=== PATIENT | male | born 1985 | race Caucasian/White ===

== ENCOUNTER 2021-09-14 00:41 | Emergency (ER) | payer OTHER ==
[~2021-09-14] VITALS: Ht 177.8 cm; Wt 88.5 kg
[2021-09-14] MEDS ORDERED: KETOROLAC TROMETHAMINE 30 MG/ML VIAL IV STA (00:55)
[2021-09-14 01:14] LABS: BASOPHILS # (AUTO) 0.1 (0.0-0.1); BASOPHILS % 0.5 % (0.0-1.0); EOSINOPHILS # (AUTO) 0.7 (0.0-0.4); EOSINOPHILS % 4.6 % (0.0-6.0); HEMATOCRIT 41.8 % (38.2-49.6); LYMPHOCYTES % 20.4 % (18.0-39.1); MEAN CORPUSCULAR HEMOGLOBIN 26.5 pg (28-32); MEAN CORPUSCULAR HGB CONC 31.1 g/dL (31-35); MEAN CORPUSCULAR VOLUME 85.1 fL (81-99); MONOCYTES # (AUTO) 1.4 (0.2-0.8); MONOCYTES % 9.1 % (4.4-11.3); NEUTROPHILS # (AUTO) 9.7 (2.1-6.9); NEUTROPHILS % 65.1 % (38.7-80.0); PLATELET COUNT 245 x10e3/uL (140-360); RED BLOOD COUNT 4.91 x10e6/uL (4.3-5.7); RED CELL DISTRIBUTION WIDTH 15.2 % (11.7-14.4)
[2021-09-14 01:31] LABS: ALBUMIN 3.5 g/dL (3.5-5.0); CALCIUM 8.6 mg/dL (8.4-10.2); CREATININE, SERUM 1.03 mg/dL (0.72-1.25)
[2021-09-14] MEDS ORDERED: IOPAMIDOL 370 MG/ML 200 ML INFUS..BTL INJ ONE (02:12)
[2021-09-14] MEDS ORDERED: SODIUM CHLORIDE 0.9% 50ML 50 ML ONE (02:12)
[2021-09-14] MEDS ORDERED: Clindamycin INJ 600 MG 600 MG in SODIUM CHLORIDE 0.9% 50ML 50 ML IV STA (03:40)
[2021-09-14] MEDS ORDERED: TRAMADOL HCL 50 MG TAB PO ONE (03:45)
[2021-09-14 04:16] LABS: AMPHETAMINES SCREEN,URINE NEGATIVE (NEGATIVE); BENZODIAZEPINES SCREEN,URINE NEGATIVE (NEGATIVE); PHENCYCLIDINE SCREEN,URINE NEGATIVE (NEGATIVE)
[2021-09-14] MEDS ORDERED: ONDANSETRON HCL INJ 2MG/ML 2ML 2 MG/ML VIAL IV STA (04:57)
[2021-09-14] MEDS ORDERED: Morphine 4mg Syringe 4 MG/ML INJ IV ONE (05:00)
[2021-09-14 05:17] VITALS: BP 140/98
== END 2021-09-14 05:21 | disposition short-term general hospital (02) ==
LOC: ER 01:09
DX: J34.0 Abscess, furuncle and carbuncle of nose (principal); J34.2 Deviated nasal septum; Z20.822 Contact with and (suspected) exposure to COVID-19
CPT/HCPCS: 36415; 70487; 80053; 80307; 85025; 99284; J1885; J2270; J2405; Q9967; U0002